=== PATIENT | male | born 1935 | race Caucasian/White ===

== ENCOUNTER 2016-08-03 14:13 | Emergency (ER) | payer OTHER ==
[~2016-08-03] VITALS: Ht 177.8 cm; Wt 86.9 kg
[~2016-08-03 14:13] MED LIST: ACT30 PO; ASPI81TA28 PO; ATOR-24 PO; BIMA0.01 OPR; CRD4 PO; DORZ2SOL17 OPR; GARL10007 PO; GLC/500 PO; GLC5 PO; GLIP10TA10 PO; GLIP10TA3 PO; HYDR50TA3 PO; LISI40TA PO; WARF4TAB PO; WARF6TAB PO
[2016-08-03 14:15] VITALS: TEMP 36.7; Ht 177.8 cm; Wt 86.9 kg
[2016-08-03 14:39] VITALS: O2SAT 98
[2016-08-03 14:56] LABS: BASO % 0.3 %; BASO ABS # 0.02 K/uL (0-0.2); COMPLETE YES; EOS % 3.2 %; HEMATOCRIT 37.8 % (42-52); LYMPH % 15.3 %; MEAN CELL VOLUME 92.6 fL (80-100); MEAN CORPUSCULAR HEMOGLOBIN 28.7 pg (25-34); MEAN PLATELET VOLUME 10.5 fL (7.4-10.4); MONO % 9.9 %; NEUT % 70.3 %; PLATELET COUNT 220 K/uL (130-400); RED BLOOD COUNT 4.08 M/uL (4.7-6.1); WHITE BLOOD COUNT 7.18 K/uL (4.8-10.8)
[2016-08-03 15:05] LABS: INR 1.3 (0.9-1.1); PROTHROMBIN TIME (PATIENT) 13.5 SECONDS (9.0-12.0)
[2016-08-03 15:31] LABS: ALB/GLOB RATIO 1.1 (0.9-2); CALCIUM 9.2 mg/dl (8.5-10.1); CREATININE 0.79 mg/dl (0.60-1.40); POTASSIUM 3.5 mmol/L (3.5-5.1)
--- NOTE | 2016-08-03 15:59 | DIAGNOSTIC IMAGING REPORT ---
CHEST ONE VIEW PORTABLE CLINICAL HISTORY: Congestive heart failure COMPARISON STUDY: No previous studies for comparison. FINDINGS: The heart is mildly enlarged. There is no evidence of failure. There is no focal pulmonary consolidation. There are minor basilar atelectatic changes. There is no pneumothorax. No pleural effusions are visualized.[ IMPRESSION: Mild cardiomegaly. No acute findings. Electronically signed by: Sergo Moreland M.D. 08/03/2016 3:57 PM Dictated Date/Time: 08/03/2016 3:56 PM
[2016-08-03 16:23] LABS: URINE APPEARANCE CLEAR (CLEAR); URINE BILIRUBIN NEG (NEG); URINE COLOR YELLOW; URINE NITRITE NEG (NEG); URINE SPECIFIC GRAVITY 1.019 (1.000-1.030); UROBILINOGEN NEG (NEG)
--- NOTE | 2016-08-03 16:25 | DIAGNOSTIC IMAGING REPORT ---
ULTRASOUND VENOUS DOPPLER LWR EXT BILA CLINICAL HISTORY: Bilateral leg swelling COMPARISON STUDY: No previous studies for comparison. FINDINGS: Real-time and color flow Doppler imaging were performed. Flow was seen within the femoral, popliteal and calf veins with no intraluminal thrombus demonstrated. The saphenous vein is patent. IMPRESSION: No evidence of lower extremity DVT. Electronically signed by: Sergo Moreland M.D. 08/03/2016 4:23 PM Dictated Date/Time: 08/03/2016 4:22 PM
[2016-08-03 16:27] LABS: MANUAL MICROSCOPIC REQUIRED? NO; REVIEW REQ? NO
[2016-08-03] MEDS ORDERED: WARFARIN SOD 5 MG TAB PO ONE (17:30)
[2016-08-03 17:31] VITALS: BP 160/78; PULSE 76; O2SAT 98
--- NOTE | 2016-08-03 20:06 | EMERGENCY ROOM VISIT NOTE ---
History Report prepared by Jason: Fidencio Bain Under the Supervision of: Dr. Roshan Ray D.O. First contact with patient: 14:19 Chief Complaint: EDEMA TO EXTREMITY Stated Complaint: REFERRED BY PAT , LEGS AND FEET SWOLLEN History of Present Illness The patient is a 80 year old male who presents to the Emergency Room with complaints of persistent bilateral lower extremity edema starting about 15 days ago. He currently denies any pain. He is unable to ambulate as normal due to the pain in his knees which he is having replaced and was at a preop appointment for prior to being sent over. He denies any history of similar symptoms. He denies any recent weight gain. He admits to losing weight. He was referred to the Emergency Room by his PCP. Pt denies headache, change in vision, fevers, chest pain, shortness of breath, nausea, vomiting, diarrhea, pain with urination, and melena. He denies any recent changes in medication. The patient is scheduled to have left knee replacement and will later have his right replaced. He is able to ambulate minimally due to pain in his knees but has no shortness of breath. He is able to lay flat without becoming short of breath. He denies any exertional chest pain. Source of History: patient Onset: about 15 days ago Position: other (bilateral lower extremities) Symptom Intensity: no pain Quality: other (edema) Timing: other (persistent) Associated Symptoms: No SOB, No chest pain, No diarrhea, No fevers, No headache, No nausea, No vomiting Review of Systems See HPI for pertinent positives & negatives. A total of 10 systems reviewed and were otherwise negative. Past Medical & Surgical Medical Problems: (1) Atrial flutter (2) Osteoarthritis Family History Patient reports no known family medical history. Social History Smoking Status: Former Smoker Marital Status: Occupation Status: retired Current/Historical Medications Scheduled Aspirin (Aspirin Ec), 81 MG PO QAM Atorvastatin (Lipitor), 40 MG PO QPM Bimatoprost (Lumigan), 1 DROP OPR HS Dorzolamide Hcl (Trusopt Oph), 1 DROP OPR QAM Doxazosin Mesylate (Doxazosin Mesylate), 4 MG PO QAM Garlic (Garlic), 1,000 MG PO QAM Glipizide (Glipizide), 5 MG PO QAM Glipizide (Glipizide), 10 MG PO QDB Hydrochlorothiazide (Hctz), 50 MG PO QAM Lisinopril (Zestril), 40 MG PO QAM Metformin Hcl (Glucophage), 1,000 MG PO BID Pioglitazone (Actos), 45 MG PO QPM Warfarin Sodium (Coumadin), 4 MG PO 3XWK Warfarin Sodium (Coumadin), 6 MG PO 4XWK Allergies Coded Allergies: No Known Allergies (Unverified , 08/03/16) Physical Exam Vital Signs Date Time Temp Pulse Resp B/P Pulse Ox O2 Delivery O2 Flow Rate FiO2 08/03/16 17:31 76 16 160/78 98 Room Air 08/03/16 16:38 76 16 170/73 97 Room Air 08/03/16 14:49 77 08/03/16 14:39 98 Room Air 08/03/16 14:15 36.7 73 18 163/78 98 Room Air Physical Exam GENERAL: Sitting up in bed, no distress, non-toxic EYE EXAM: normal conjunctiva OROPHARYNX: no exudate, no erythema, lips, buccal mucosa, and tongue normal and mucous membranes are moist NECK: supple, no nuchal rigidity, no adenopathy, non-tender. No JVD. LUNGS: Clear to auscultation. Normal chest wall mechanics HEART: no murmurs, S1 normal and S2 normal ABDOMEN: abdomen soft, non-tender, normo-active bowel sounds, no masses, no rebound or guarding. BACK: Back is symmetrical on inspection and there is no deformity, no midline tenderness, no CVA tenderness. SKIN: no rashes and no bruising UPPER EXTREMITIES: upper extremities are grossly normal. LOWER EXTREMITIES: Pitting edema tracking up to upper thighs, calves are equal bilaterally. NEURO EXAM: Normal sensorium, cranial nerves II-XII grossly intact, normal speech, no gross weakness of arms, no gross weakness of legs. Medical Decision & Procedures ER Provider Diagnostic Interpretation: Xray results as interpreted by me and the radiologist: CHEST ONE VIEW PORTABLE CLINICAL HISTORY: Congestive heart failure COMPARISON STUDY: No previous studies for comparison. FINDINGS: The heart is mildly enlarged. There is no evidence of failure. There is no focal pulmonary consolidation. There are minor basilar atelectatic changes. There is no pneumothorax. No pleural effusions are visualized.[ IMPRESSION: Mild cardiomegaly. No acute findings. Electronically signed by: Sergo Moreland M.D. 08/03/2016 3:57 PM Dictated Date/Time: 08/03/2016 3:56 PM US results as stated below per my review and the radiologist's interpretation: ULTRASOUND VENOUS DOPPLER LWR EXT BILA CLINICAL HISTORY: Bilateral leg swelling COMPARISON STUDY: No previous studies for comparison. FINDINGS: Real-time and color flow Doppler imaging were performed. Flow was seen within the femoral, popliteal and calf veins with no intraluminal thrombus demonstrated. The saphenous vein is patent. IMPRESSION: No evidence of lower extremity DVT. Electronically signed by: Sergo Moreland M.D. 08/03/2016 4:23 PM Dictated Date/Time: 08/03/2016 4:22 PM Laboratory Results 08/03/16 14:44 Red Blood Count 4.08, Mean Corpuscular Volume 92.6, Mean Corpuscular Hemoglobin 28.7, Mean Corpuscular Hemoglobin Concent 31.0, Mean Platelet Volume 10.5, Neutrophils (%) (Auto) 70.3, Lymphocytes (%) (Auto) 15.3, Monocytes (%) (Auto) 9.9, Eosinophils (%) (Auto) 3.2, Basophils (%) (Auto) 0.3, Neutrophils # (Auto) 5.05, Lymphocytes # (Auto) 1.10, Monocytes # (Auto) 0.71, Eosinophils # (Auto) 0.23, Basophils # (Auto) 0.02 08/03/16 14:44 Test 08/03/16 14:44 08/03/16 15:34 White Blood Count 7.18 K/uL (4.8-10.8) Red Blood Count 4.08 M/uL (4.7-6.1) Hemoglobin 11.7 g/dL (14.0-18.0) Hematocrit 37.8 % (42-52) Mean Corpuscular Volume 92.6 fL (80-100) Mean Corpuscular Hemoglobin 28.7 pg (25-34) Mean Corpuscular Hemoglobin Concent 31.0 g/dl (32-36) Platelet Count 220 K/uL (130-400) Mean Platelet Volume 10.5 fL (7.4-10.4) Neutrophils (%) (Auto) 70.3 % Lymphocytes (%) (Auto) 15.3 % Monocytes (%) (Auto) 9.9 % Eosinophils (%) (Auto) 3.2 % Basophils (%) (Auto) 0.3 % Neutrophils # (Auto) 5.05 K/uL (1.4-6.5) Lymphocytes # (Auto) 1.10 K/uL (1.2-3.4) Monocytes # (Auto) 0.71 K/uL (0.11-0.59) Eosinophils # (Auto) 0.23 K/uL (0-0.5) Basophils # (Auto) 0.02 K/uL (0-0.2) RDW Standard Deviation 56.4 fL (36.4-46.3) RDW Coefficient of Variation 16.5 % (11.5-14.5) Immature Granulocyte % (Auto) 1.0 % Immature Granulocyte # (Auto) 0.07 K/uL (0.00-0.02) Prothrombin Time 13.5 SECONDS (9.0-12.0) Prothromb Time International Ratio 1.3 (0.9-1.1) Anion Gap 9.0 mmol/L (3-11) Est Creatinine Clear Calc Drug Dose 77.0 ml/min Estimated GFR () 98.3 Estimated GFR (Non- 84.8 BUN/Creatinine Ratio 28.0 (10-20) Calcium Level 9.2 mg/dl (8.5-10.1) Total Bilirubin 1.7 mg/dl (0.2-1) Aspartate Amino Transf (AST/SGOT) 109 U/L (15-37) Alanine Aminotransferase (ALT/SGPT) 160 U/L (12-78) Alkaline Phosphatase 85 U/L (45-117) Pro-B-Type Natriuretic Peptide 1527 pg/ml (0-1800) Total Protein 6.2 gm/dl (6.4-8.2) Albumin 3.2 gm/dl (3.4-5.0) Globulin 3.0 gm/dl (2.5-4.0) Albumin/Globulin Ratio 1.1 (0.9-2) Urine Color YELLOW Urine Appearance CLEAR (CLEAR) Urine pH 5.0 (4.5-7.5) Urine Specific [place] 1.019 (1.000-1.030) Urine Protein NEG (NEG) Urine Glucose (UA) NEG (NEG) Urine Ketones TRACE (NEG) Urine Occult Blood NEG (NEG) Urine Nitrite NEG (NEG) Urine Bilirubin NEG (NEG) Urine Urobilinogen NEG (NEG) Urine Leukocyte Esterase NEG (NEG) Laboratory results per my review. Medications Administered Medications (Trade) Dose Ordered Sig/Iglesia Route Start Time Stop Time Status Last Admin Dose Admin Warfarin Sodium (Coumadin Tab) 10 mg NOW ONCE PO 08/03/16 17:30 08/03/16 17:31 DC 08/03/16 17:42 10 MG ECG Indication: other (Lower extremity edema) Rate (beats per minute): 66 Rhythm: atrial flutter Findings: other (normal axis; normal intervals) Comparison ECG Date: September 20, 2012 Change: no significant change ED Course ED COURSE: Vital signs were reviewed and showed hypertensive. The patients medical record was reviewed The above diagnostic studies were performed and reviewed. ED treatments and interventions as stated above. 1419: The patient was evaluated in room C11B. A complete history and physical examination was performed. 1544: I reevaluated the patient who is doing well. 1645: I updated the patient. 1658: I discussed the patient's case with his PCP, Dr. Henley, who will evaluate the patient this week. His INR will be followed up as well as the swelling. 1730: Coumadin Tab 10 mg PO. Upon reevaluation, the patient is resting comfortably.I discussed my findings with the patient and he understands and agrees with the treatment plan. Based on the patients age, coexisting illnesses, exam and lab findings the decision to treat as an outpatient was made. The patient remained stable while under my care. The patient appeared well at the time of discharge. Medical Decision Differential Diagnosis includes but is not limited to dehydration, stroke, anemia, hypoglycemia, hyponatremia, hypernatremia, urinary tract infection, pneumonia, bronchitis, sepsis, gastroenteritis, additional abdominal pathology, metabolic abnormalities and infections. Old labs show persistent elevation AST ALT 120 and TBIL of 2.1. Patient is an 80-year-old male who presents the ER referred in from the preoperative nurse for swelling in the bilateral lower extremities. She notes that this has been present for the past 15 days. He has been much less active due to his knee pain. He is currently scheduled to have his knee replaced. He is able to lay flat without shortness of breath. He has no exertional shortness of breath or chest pain. EKG is unchanged from previous. LFTs were slightly elevated but unchanged from his previous. CBC is unremarkable. BMP is unremarkable as well. BNP was not markedly elevated at 1500. Troponin was not drawn since he was having no chest pain or shortness of breath. EKG as stated above is unchanged. Chest x-ray shows no congestive failure. There was no JVD. Discussed with findings with his PCP who will follow his INR up as it is subtherapeutic. He was given an extra dose in the ER and instructed to increase his Coumadin for 2 days as stated on his discharge instructions. His PCP will also follow-up lower extremity pitting edema. Stressed the importance of elevation in his lower extremities. Discussed with Pt concerning signs and symptoms to watch out for. Pt was instructed to follow up with their PCP and discussed with the patient their option to return to the ED at anytime for persistent or worsening symptoms. The appropriate anticipatory guidance and out- patient management, including indications for return to the emergency department , were explained at length to the patient and understood. Consults Time Called: [id number] Consulting Physician: Dr. Henley, PCP Returned Call: [phone] I discussed the patient's case with his PCP, Dr. Henley, who will evaluate the patient this week. His INR will be followed up as well as the swelling. Impression Primary Impression: Swelling of both lower extremities Additional Impression: Subtherapeutic anticoagulation Scribe Attestation The scribe's documentation has been prepared under my direction and personally reviewed by me in its entirety. I confirm that the note above accurately reflects all work, treatment, procedures, and medical decision making performed by me. Departure Information Dispostion Home / Self-Care Referrals Cale Lee PA-C (PCP) Forms HOME CARE DOCUMENTATION FORM, IMPORTANT VISIT INFORMATION, WORK / SCHOOL INSTRUCTIONS Patient Instructions ED Edema Leg Unilateral, My [facility] Additional Instructions Please follow up with your primary care doctor with in the next 24 hours. Any worsening of your symptoms, please return to the ED immediately. This includes shortness of breath, passing out, trouble breathing or any other concerning signs or symptoms from your standpoint. Please follow up with your primary care doctor in regards to the bilateral lower extremity edema. Please increase her Coumadin dosing to 6 mg tomorrow and 6 mg on Wednesday. You need to call your primary care doctor tomorrow morning to schedule appointment as soon as possible. Please keep your legs as elevated as possible as frequently as possible Problem Qualifiers
[2016-09-06] MEDS ORDERED: RXC5 PO (09:14)
== END 2016-08-03 18:17 | disposition home or self-care (01) ==
LOC: C.EDB 14:15 → C.EDC 18:17
DX: M79.89 Other specified soft tissue disorders (principal); R79.1 Abnormal coagulation profile; I48.92 Unspecified atrial flutter; M19.90 Unspecified osteoarthritis, unspecified site; Z87.891 Personal history of nicotine dependence; Z79.82 Long term (current) use of aspirin; Z79.01 Long term (current) use of anticoagulants; Z79.899 Other long term (current) drug therapy

== ENCOUNTER 2016-09-04 04:51 | Inpatient (IN) | payer OTHER ==
[2016-08-03 12:53] VITALS: BMI 27.0
--- NOTE | 2016-08-03 13:59 | PAT Medication Instructions ---
Service Date Aug 03, 2016. Current Home Medication List Aspirin (Aspirin Ec), 81 MG PO QAM Atorvastatin (Lipitor), 40 MG PO QPM Bimatoprost (Lumigan), Unknown Dose OPR HS Dorzolamide Hcl (Trusopt Oph), Unknown Dose OPR QAM Doxazosin Mesylate (Doxazosin Mesylate), 1 TAB PO QAM Garlic (Garlic), 1 TAB PO QAM Glipizide (Glipizide), 1 TAB PO QAM Glipizide (Glipizide), 1 TAB PO QAM Hydrochlorothiazide (Hctz), 50 MG PO QAM Lisinopril (Zestril), 40 MG PO QAM Metformin Hcl (Glucophage), 2 MG PO BID Metformin Hcl (Glucophage), 2 TAB PO BID Pioglitazone (Actos), 45 MG PO QPM Warfarin Sodium (Coumadin), 4 MG PO 3XWK Warfarin Sodium (Coumadin), 6 MG PO 4XWK Medication Instructions For Your Scheduled Surgery - Hold the following medications per prescribing physician's instructions: Warfarin Sodium (Coumadin), 4 MG PO 3XWK Warfarin Sodium (Coumadin), 6 MG PO 4XWK - Hold the following medications 2 weeks prior to surgery: Garlic (Garlic), 1 TAB PO QAM - Hold the following medications 48 hours prior to surgery: Metformin Hcl (Glucophage), 2 TAB PO BID - Hold the following medications the morning of surgery: Hydrochlorothiazide (Hctz), 50 MG PO QAM Lisinopril (Zestril), 40 MG PO QAM Glipizide (Glipizide), 1 TAB PO QAM Glipizide (Glipizide), 1 TAB PO QAM - Take the following medications the morning of surgery with a sip of water OTHERWISE NOTHING TO EAT OR DRINK AFTER MIDNIGHT: Aspirin (Aspirin Ec), 81 MG PO QAM Dorzolamide Hcl (Trusopt Oph), Unknown Dose OPR QAM Doxazosin Mesylate (Doxazosin Mesylate), 1 TAB PO QAM - Take the following medications as scheduled the night before surgery: Atorvastatin (Lipitor), 40 MG PO QPM Bimatoprost (Lumigan), Unknown Dose OPR HS Pioglitazone (Actos), 45 MG PO QPM If you have any questions please call us at [phone] or [phone] or [phone]
--- NOTE | 2016-08-03 14:27 | Anesthesiology Progress Note ---
Anesthesia Progress Note Date of Service Aug 03, 2016. Progress Notes Pt seen in PAT today in preparation for L TKA with Dr. Sawant 09/04/16. PMH significant for NIDDM, Afib/Aflutter; pt on Coumadin. Follows with [facility]. Last seen 2014. Pt states over the past few weeks he has had progressive weakness B/L LE, and has essentially been WC bound. States he has noticed increased swelling in B/L LE from knees to feet; so much so that he has had to buy special socks and can barely get his shoes on. Pt also with an erythematous area over dorsal surface of foot. Vitals WNL. Pt sent to ED for evaluation to R/O CHF, DVT, cellulitis. Called triage nurse to let them know that pt was on their way.
--- NOTE | 2016-09-03 11:54 | HISTORY & PHYSICAL EXAMINATION ---
DATE OF ADMISSION: 09/04/2016 CHIEF COMPLAINT: Primary osteoarthritis, left knee. HISTORY OF PRESENT ILLNESS: Laine is a pleasant 80-year-old male who has been dealing with chronic left knee pain. X-rays and clinical examination were diagnostic for primary osteoarthritis of the left knee. After failing years of conservative treatment, he has elected to proceed with a left total knee arthroplasty. PAST MEDICAL HISTORY: Significant for non-insulin diabetes, glaucoma, atrial flutter, hyperlipidemia and hypertension. MEDICATIONS: Include: 1. Lipitor 40 mg daily. 2. Coumadin 4 mg every Wednesday, Wednesday and Wednesday and 6 mg every other day. 3. Zestril 40 mg daily. 4. HydroDIURIL or hydrochlorothiazide 50 mg daily. 5. Glucophage 500 mg two tabs twice a day. 6. Glucotrol 5 mg daily. 7. Glucotrol 10 mg daily. 8. Actos 45 mg daily. 9. Cardura 4 mg daily. 10. Aspirin 81 mg daily. ALLERGIES: None. FAMILY HISTORY: Noncontributory. SOCIAL HISTORY: He is a former smoker and he currently chews tobacco. He denies any alcohol use. REVIEW OF SYSTEMS: He complains of left knee pain. All other pertinent review of systems are negative. PHYSICAL EXAMINATION: GENERAL: He is awake, alert and oriented x3. He is in no apparent distress. He is very pleasant. HEAD, EYES, EARS, NOSE, AND THROAT: Pupils are equal, round and reactive to light. Extraocular movements intact. Oral mucosa is pink and moist. HEART: Regular rate per radial pulse. LUNGS: Airam symmetrically bilaterally with no audible breath sounds. ABDOMEN: Soft, nontender, nondistended. MUSCULOSKELETAL: On physical examination of the knee he ambulates via wheelchair mostly because of his knee pain. He has a very slight varus deformity. He has good range of motion from 0-120 degrees. All of his pain is located over the distal medial femoral condyle. There is no effusion. X-rays of the left knee do show advanced osteoarthritis mostly involving the medial compartment with slight varus deformity to the knee. IMPRESSION: Primary osteoarthritis of the left knee. PLAN: Will proceed with a [employer]omet Vanguard left total knee arthroplasty. Postoperatively, he will be kept in the hospital for 2 midnights for postoperative medical management and pain control.
[~2016-09-04] VITALS: Ht 177.8 cm; Wt 97.0 kg
[~2016-09-04 04:51] MED LIST changes: -GLIP10TA3 PO
[2016-09-04 05:50] VITALS: BP 162/71; PULSE 59; TEMP 36.9; O2SAT 96; Ht 177.8 cm; Wt 97.0 kg
[2016-09-04] MEDS ORDERED: CEFAZOLIN 2000 MG/60 ML D5W 60 ML IV SCH (06:00)
[2016-09-04] MEDS ORDERED: ROPIVACAINE 5MG/ML 30 ML 150 MG, BUPIVACAINE/EPINEPHR 0.5% MPF 30 ML, KETOROLAC TROMETH... INFIL SCH ×7 (06:00)
[2016-09-04] MEDS ORDERED: ACETAMINOPHEN 500 MG TAB PO SCH (06:00)
[2016-09-04] MEDS ORDERED: GABAPENTIN 300 MG CAP PO SCH (06:00)
[2016-09-04] MEDS ORDERED: FAMOTIDINE 20 MG TAB PO SCH (06:00)
[2016-09-04] MEDS ORDERED: LACTATED RINGER'S 1000ML IV SCH (06:00)
[2016-09-04] MEDS ORDERED: LACTATED RINGER'S 1000ML 1,000 ML IV SCH (06:00)
--- NOTE | 2016-09-04 06:28 | History & Physical Bridge Note ---
H&P Re-Evaluation Bridge Note: I have examined the patient, reviewed the History & Physical and in the interval since the performance of the History & Physical I have noted the following changes of clinical significance: No changes noted
[2016-09-04] MEDS ORDERED: BUPIVACAINE 0.5 % 5 MG/1 ML PF 10ML VIAL ONE (06:33)
[2016-09-04] MEDS ORDERED: MIDAZOLAM HCL 1 MG/ML 2ML VIAL ONE (06:36)
[2016-09-04] MEDS ORDERED: ONDANSETRON INJ 2 MG/ML 2 ML VIAL ONE (06:36)
[2016-09-04] MEDS ORDERED: PROPOFOL IV EMULSION 10 MG/ML 20 ML VIAL IV ONE (06:36)
[2016-09-04] MEDS ORDERED: FENTANYL CITRATE INJ 50 MCG/1 ML 2 ML VIAL ONE ×2 (06:36→07:51)
[2016-09-04] MEDS ORDERED: ORTHO JOINT ANESTHETIC ONE (06:37)
[2016-09-04] MEDS ORDERED: BACITRACIN 50000 UNIT VIAL ONE (06:38)
[2016-09-04 06:44] LABS: INR 1.3 (0.9-1.1); PARTIAL THROMBOPLASTIN RATIO 1.1; PROTHROMBIN TIME (PATIENT) 13.6 SECONDS (9.0-12.0)
[2016-09-04] MEDS ORDERED: [UNRECOGNIZED DRUG - REMARK] PO (06:58)
[2016-09-04] MEDS ORDERED: NEOSTIGMINE METHYLSULFATE 5 MG/5 ML SYR ONE (08:08)
[2016-09-04] MEDS ORDERED: LIDOCAINE HCL 2% 2 ML VIAL (20MG/ML) ONE (08:08)
[2016-09-04] MEDS ORDERED: ROCURONIUM BROMIDE 10 MG/ML 5 ML VIAL ONE (08:08)
[2016-09-04] MEDS ORDERED: GLYCOPYRROLATE INJ 0.2 MG/ML VIAL ONE (08:08)
--- NOTE | 2016-09-04 08:53 | [facility] Post Operative Brief Note ---
Immediate Operative Summary Operative Date September 04, 2016. Pre-Operative Diagnosis Primary osteoarthritis, left knee Post-Operative Diagnosis Same Procedure(s) Performed Left Total Knee Arthroplasty Cemented Surgeon Dr Sawant Reliability Engineer Surgeon(s) Jeremy Higgins PA-C Estimated Blood Loss 10ML Findings as above Specimens A. left knee bone and tissue Complication(s) None Disposition Recovery Room / PACU
[2016-09-04] MEDS ORDERED: ONDANSETRON INJ 2 MG/ML 2 ML VIAL IV PRN ×2 (09:00→09:15)
[2016-09-04] MEDS ORDERED: MAGNESIUM HYDROXIDE SUSP 30 ML UDC PO PRN (09:00)
[2016-09-04] MEDS ORDERED: GLUCAGON FOR INJ 1 MG VIAL SQ PRN (09:00)
[2016-09-04] MEDS ORDERED: GLUCOSE 40% GEL 15 GM TUBE PO PRN (09:00)
[2016-09-04] MEDS ORDERED: MoRPHine SULFATE 2 MG/ML CARP IV PRN (09:00)
[2016-09-04] MEDS ORDERED: METOCLOPRAMIDE HCL INJ 5 MG/ML 2 ML VIAL IV PRN (09:00)
[2016-09-04] MEDS ORDERED: OXYCODONE HCL IR 5 MG TAB (IMMEDIATE RELEASE) PO PRN (09:00)
[2016-09-04] MEDS ORDERED: SILVER SULFADIAZINE 1% CR 50 GM JAR EXT PRN (09:00)
[2016-09-04] MEDS ORDERED: BISACODYL 10 MG SUPP PR PRN (09:00)
[2016-09-04] MEDS ORDERED: SOD PHOSPHATE/SOD BIPHOSPHATE ENEMA 132 ML BTL PR PRN (09:00)
[2016-09-04] MEDS ORDERED: DEXTROSE 50% 50 ML SYR IV PRN (09:00)
[2016-09-04] MEDS ORDERED: GLUCOSE 10 TABS/TUBE PO PRN (09:00)
[2016-09-04] MEDS ORDERED: PHARMACY GLYCEMIC MGMT CONSULT PRN (09:09)
[2016-09-04] MEDS ORDERED: ATROPINE SULFATE 0.1 MG/ML 5ML SYR IV PRN (09:15)
[2016-09-04] MEDS ORDERED: FENTANYL CITRATE INJ 50 MCG/1 ML 2 ML VIAL IV PRN (09:15)
[2016-09-04] MEDS ORDERED: HYDROmorphone INJ 1 MG/ML SYR IV PRN (09:15)
[2016-09-04] MEDS ORDERED: EpHEDrine SULFATE INJ 50 MG/ML AMP IV PRN (09:15)
[2016-09-04] MEDS ORDERED: EpHEDrine SULFATE 50MG/5ML SYR ONE (09:37)
--- NOTE | 2016-09-04 09:45 | Pharmacy Progress Note ---
Glycemic Control Intl Consult Date of Service September 04, 2016. Scope Glycemic Pharmacist consulted for glycemic control and to write orders per [facility] inpatient glycemic control protocol Objective Weight (Kilograms): 85.10 Accuchecks BSG (last 24hrs): Test 09/04/16 05:35 Bedside Glucose 166 mg/dl (70-99) Recent Pertinent Medications Outpatient Anti-diabetic Regimen: * Metformin 1 g po BID * Glipizide po qAM * Actos 45 mg po qPM * A1c unknown, ordered for 09/05/16 Risk Factors for Insulin Resistance: * Steroids: Dexamethasone 4 mg (in ortho joint) * Recent Surgery: POD 0 s/p TKA * Diet: T2DM Assessment & Plan ASSESSMENT: * Pt is maintained on *three* oral antidiabetic agents as an outpatient with unknown degree of outpatient control * Oral agents are not recommended for inpatient use d/t drug interactions, changing PO intake, and difficulty titrating for acute hyper/hypoglycemia. ADA recommends re-initiating outpatient oral agents 1-2 days prior to discharge if/ when appropriate if they were held on admission. * Unknown HbA1c. Will order for tomorrow to assess degree of outpatient control * Will hold oral agents for admission and utilize SQ basal bolus insulin regimen which is the recommended regimen for inpatient glycemic control. * Will initiate weight based insulin dosing for insulin dora patient and titrate based on BSG trends. * Lantus 0.2 units/kg x1 now then weight-based w low stress additional this PM for hyperglycemia * Overnight check x1 * ADA & AACE recommend a goal blood sugar range 140-180 mg/dl for the majority of critically ill & non-critically ill patients. However, more stringent targets may be selected in individual cases. Will utilize more stringent goal of 110-140 mg/dl. Additionally, tighter glycemic control is warranted to facilitate wound/infection healing. PLAN FOR INPATIENT GLYCEMIC CONTROL: * Holding outpatient oral diabetes medications * Basal insulin with LANTUS 18 units SQ x1 now. Additional 8 units tonight if BSG > 150 mg/dL * Correctional Insulin with NOVOLOG per scale ACHS or Q6hrs while NPO - additional check at 0200 * Goal Range: Low 110 mg/dL - High 140 mg/dL * Correction Factor: 30 mg/dL/unit * Nutritional / Prandial insulin per carb ratio of 1 unit per 9 grams CHO consumed * Please note that the plan above was derived based on current level of insulin resistance and hospital stress. These recommendations are appropriate for inpatient admission only. Plan of care upon discharge will need to be reassessed to avoid potential outpatient hypo/hyperglycemia. Thank you.
--- NOTE | 2016-09-04 10:05 | DIAGNOSTIC IMAGING REPORT ---
TWO VIEWS LEFT KNEE CLINICAL HISTORY: Postoperative examination. FINDINGS: AP and crosstable lateral portable views of the left knee are obtained. A left knee arthroplasty is in near anatomic alignment. There has been undersurface remodeling of the patella. No acute fracture is seen. There are expected postoperative changes around the knee including skin clips, a surgical drain, soft tissue edema, and subcutaneous gas. A calcified fabella is incidentally noted. There is advanced atherosclerotic calcification of the regional arteries. IMPRESSION: Expected postoperative changes status post left knee arthroplasty. No acute fracture is seen. Electronically signed by: Cam Quinn M.D. 09/04/2016 10:03 AM Dictated Date/Time: 09/04/2016 10:03 AM
[2016-09-04 10:40] VITALS: BP 149/74; PULSE 65; TEMP 36.5; O2SAT 99
--- NOTE | 2016-09-04 10:58 | Anesthesiology Progress Note ---
Anesthesia Post Op Note Date & Time September 04, 2016 at 10:58 Vital Signs Pain Intensity: 0 Vital Signs Past 12 Hours Date Time Temp Pulse Resp B/P Pulse Ox O2 Delivery O2 Flow Rate FiO2 09/04/16 10:15 36.3 64 14 140/69 100 Nasal Cannula 2 09/04/16 10:05 63 12 138/66 100 Nasal Cannula 2 09/04/16 09:55 60 14 142/65 100 Nasal Cannula 2 09/04/16 09:45 55 10 125/64 100 Mask 10 09/04/16 09:35 61 17 135/71 100 Mask 10 09/04/16 09:29 36.2 55 12 140/61 100 Mask 10 09/04/16 05:50 36.9 59 20 162/71 96 Room Air Notes Mental Status: alert / awake / arousable, participated in evaluation Pt Amnestic to Procedure: Yes Nausea / Vomiting: adequately controlled Pain: adequately controlled Airway Patency, RR, SpO2: stable & adequate BP & HR: stable & adequate Hydration State: stable & adequate Anesthetic Complications: no major complications apparent
[2016-09-04] MEDS ORDERED: INSULIN GLARGINE SOLOSTAR 100 UNITS/ML 3 ML PEN SC STA (11:04)
[2016-09-04 11:30] VITALS: BP 153/73; PULSE 64; TEMP 36.6; O2SAT 100
[2016-09-04] MEDS: DOCUSATE SODIUM 100 MG CAP PO SCH ×2 (12:59→21:14)
[2016-09-04] MEDS: INSULIN ASPART 100 UNITS/ML 3 ML PEN SC SCH ×3 (12:59→21:17)
[2016-09-04] MEDS: DOXAZosin MESYLATE TAB 4 MG TAB PO SCH (12:59)
[2016-09-04] MEDS: PANTOprazole SOD 40 MG TAB PO SCH (12:59)
[2016-09-04] MEDS: LISINOPRIL 40 MG TAB PO SCH (12:59)
[2016-09-04] MEDS: MULTIVITAMIN TAB PO SCH (12:59)
[2016-09-04] MEDS: KETOROLAC TROMETHAMINE 15 MG/ML VIAL IV. SCH ×2 (13:02→17:21)
[2016-09-04] MEDS: SODIUM CHLORIDE 0.9% 1000ML 1,000 ML IV SCH ×2 (13:03→21:18)
[2016-09-04] MEDS: DORZOLAMIDE HCL 2% OPH SOLN 10 ML BTL OPR SCH (13:03)
[2016-09-04 15:37] VITALS: BP 134/66; PULSE 47; TEMP 36.5; O2SAT 100
[2016-09-04] MEDS ORDERED: WARFARIN SOD 2.5 MG TAB PO SCH (16:00)
--- NOTE | 2016-09-04 16:14 | OPERATIVE REPORT ---
DATE OF OPERATION: 09/04/2016 PREOPERATIVE DIAGNOSIS: Primary osteoarthritis of the left knee. POSTOPERATIVE DIAGNOSIS: Same. PROCEDURE: Left total knee arthroplasty. SURGEON: Dr. Abrahan Sawant. TERMITE EXTERMINATOR HELPER: Jeremy Higgins PA-C, whose assistance was necessary for positioning the arm and helping with instrumentation. ANESTHESIA: General with a left interscalene nerve block. COMPLICATIONS: None. CONDITION: Stable to PACU. IMPLANTS USED: I used a [employer] Vanguard left total knee arthroplasty with a size 70 femur, size 79 tibia, size 14 posterior stabilized polyethylene bearing and a size 31 x 8 mm patella. Palacos G cement was used on all components. INDICATIONS: Laine is a pleasant 80-year-old man who presented to my office with complaints of chronic left knee pain. X-rays and clinical examination were diagnostic for primary osteoarthritis of the left knee. After failing extensive conservative treatment, he elected to undergo a left total knee arthroplasty. OPERATION AND FINDINGS: On 09/04/2014, he arrived at [facility] for the above procedure. He was seen in the preoperative holding area and the operative extremity was identified and signed. He was given a preoperative antibiotic and a left femoral nerve block. He was then taken back to the operating room, laid on the table in supine position and put under general anesthesia. The left knee was then prepped and draped in sterile fashion. Time-out was done and the patient and operative extremity was properly identified. A midline incision was made directly over the patella. Dissection was taken down through the fascia and extensor mechanism was exposed. A medial parapatellar arthrotomy was used. The fat pad was excised, medial retinaculum was released and the knee was flexed. A drill was sent down the center of the femoral canal. An intramedullary ruddy was then sent down the canal. Off the ruddy a distal femoral cutting block was placed and 12 mm was resected off the distal femur at 5 degrees of valgus. A posterior referencing guide was then used and the femur measured to be a size 70. Two drill holes were then placed in 3 degrees of external rotation and a formal cutting block was impacted into place. Anterior, posterior and chamfer cuts were then made. A box cutting guide was then placed and the box was resected for the posterior stabilizing component. The proximal tibia was then exposed. A drill was sent down the center of the tibial canal followed by an intramedullary ruddy. Off the ruddy, a proximal tibial resection guide was placed and 2 mm was taken off the low tibial side. Time was spent then removing any remnants of meniscus and cruciate ligaments soft tissue from the posterior aspect of the knee. The tibia was then measured to be a size 79. It was set in the appropriate rotation, drilled and then punched. Trial complements were placed, the knee was brought through a full range of motion and felt to be stable. The patella was then everted and 8 mm was resected off the posterior aspect of the patella. A 31 mm patella seemed to be the best fit and 3 drill holes were placed. Complements were then removed, the knee was then irrigated and surrounding soft tissues were injected with 100 mL of an orthopedic pain control cocktail. The femoral, tibial, and patellar components were then cemented in place with Palacos-G cement. Once cement had hardened, several different polyethylene inserts were trialed and a size 14 seemed to be the best fit. The final 14 insert was snapped into place and the anterior bar was locked. The knee was then irrigated, 2 drains were placed. The extensor mechanism was closed with #2 FiberWire sutures and the superior medial aspect of the knee and Vicryl sutures both proximally and distally. The skin was then closed with 2-0 Vicryl and 3-0 V-Loc suture and patrick. He was placed in a soft compressive dressing, extubated, transferred to a litter and taken to the postanesthesia care unit in stable condition. He tolerated the procedure well. I attest to the content of the Intraoperative Record and any orders documented therein. Any exceptio ns are noted below.
[2016-09-04] MEDS: CEFAZOLIN IV 2,000 MG in DEXTROSE 5% 50ML 50 ML IV SCH (16:50)
[2016-09-04 19:18] VITALS: BP 107/63; PULSE 69; TEMP 36.8; O2SAT 98
[2016-09-04] MEDS ORDERED: INSULIN GLARGINE SOLOSTAR 100 UNITS/ML 3 ML PEN SC ONE (21:00)
[2016-09-04] MEDS: SENNA 8.6 MG TAB PO SCH (21:14)
[2016-09-04] MEDS: BIMATOPROST 0.01% OP SOLN 2.5 ML BTL OPR SCH (21:14)
[2016-09-04] MEDS: ATORVASTATIN 40 MG TAB PO SCH (21:14)
[2016-09-04 23:02] VITALS: BP 98/54; PULSE 63; TEMP 36.6; O2SAT 100
[2016-09-05] VITALS (9 sets, daily range): BP systolic 96–126; BP diastolic 50–70; PULSE 57–81; TEMP 36.4–36.7; O2SAT 97–100
[2016-09-05] MEDS: CEFAZOLIN IV 2,000 MG in DEXTROSE 5% 50ML 50 ML IV SCH (00:22)
[2016-09-05] MEDS: KETOROLAC TROMETHAMINE 15 MG/ML VIAL IV. SCH ×5 (00:22→23:48)
[2016-09-05] MEDS ORDERED: INSULIN ASPART 100 UNITS/ML 3 ML PEN SC ONE (02:00)
[2016-09-05] MEDS: SODIUM CHLORIDE 0.9% 1000ML 1,000 ML IV SCH (04:53)
[2016-09-05 07:23] LABS: HEMATOCRIT 30.7 % (42-52); MEAN CELL VOLUME 93.9 fL (80-100); MEAN CORPUSCULAR HEMOGLOBIN 28.7 pg (25-34); MEAN CORPUSCULAR HGB CONC 30.6 g/dl (32-36); MEAN PLATELET VOLUME 10.6 fL (7.4-10.4); PLATELET COUNT 181 K/uL (130-400); RED BLOOD COUNT 3.27 M/uL (4.7-6.1); WHITE BLOOD COUNT 10.67 K/uL (4.8-10.8)
[2016-09-05 07:30] LABS: INR 1.2 (0.9-1.1); PROTHROMBIN TIME (PATIENT) 13.4 SECONDS (9.0-12.0)
[2016-09-05 07:38] LABS: ESTIMATED AVERAGE GLUCOSE 134 mg/dl; HA1C FLAG Normal (Normal)
[2016-09-05] MEDS: DORZOLAMIDE HCL 2% OPH SOLN 10 ML BTL OPR SCH (07:50)
[2016-09-05] MEDS: ENOXAPARIN 40 MG/0.4 ML SYR SQ SCH (07:51)
[2016-09-05 07:52] LABS: BUN/CREATININE RATIO 26.3 (10-20); CALCIUM 7.9 mg/dl (8.5-10.1); CREATININE 0.75 mg/dl (0.60-1.40); POTASSIUM 4.8 mmol/L (3.5-5.1)
[2016-09-05] MEDS: DOXAZosin MESYLATE TAB 4 MG TAB PO SCH (07:52)
[2016-09-05] MEDS: DOCUSATE SODIUM 100 MG CAP PO SCH ×2 (07:52→21:07)
[2016-09-05] MEDS: MULTIVITAMIN TAB PO SCH (07:52)
[2016-09-05] MEDS: LISINOPRIL 40 MG TAB PO SCH (07:52)
[2016-09-05] MEDS: PANTOprazole SOD 40 MG TAB PO SCH (07:58)
[2016-09-05] MEDS: INSULIN ASPART 100 UNITS/ML 3 ML PEN SC SCH ×4 (08:00→21:00)
--- NOTE | 2016-09-05 09:23 | PROGRESS NOTE ---
DATE: 09/05/2016 DATE: 09/05/2016. CHIEF COMPLAINT: Status post left total knee arthroplasty postop day #1. PROGRESS: Laine was seen and examined at bedside today. Overall, he is doing fairly well. He has not been up yet with physical therapy. His pain is controlled. He was able to get some sleep last night and has no complaints. PHYSICAL EXAMINATION: LEFT KNEE: The dressing is clean and dry. His knee is in full extension. He has active dorsiflexion and plantarflexion of his left ankle. Sensation is intact. LABORATORY DATA: He has an H\T\H today of 9.4 and 30.7. His glucose is 126 with an A1c of 6.3. His vital signs are all stable on 2 liters of nasal cannula. He is voiding on his own. He has not had a bowel movement yet. X-rays postoperatively of the left knee showed the prosthesis to be anatomic alignment without any evidence of fracture, dislocation or loosening. IMPRESSION: Status post left total knee arthroplasty postop day #1. PLAN: At this point, he is doing fairly well. I encouraged him to get up and ambulate today with physical therapy. Tomorrow the nursing staff will change the dressing and pull the drain and will look to discharge him to home with [facility].
--- NOTE | 2016-09-05 09:31 | Pharmacy Progress Note ---
Glycemic Control: Progress Nt Date of Service September 05, 2016. Scope Glycemic Pharmacist consulted by Dr Sawant on 09/04 for glycemic control and to write orders per [facility] inpatient glycemic control protocol. Objective Accuchecks BSG (last 24hrs): Test 09/04/16 09:53 09/04/16 12:39 09/04/16 16:23 09/04/16 20:53 Bedside Glucose 149 mg/dl (70-99) 142 mg/dl (70-99) 161 mg/dl (70-99) 149 mg/dl (70-99) Test 09/05/16 02:57 09/05/16 06:34 09/05/16 07:00 Bedside Glucose 128 mg/dl (70-99) 117 mg/dl (70-99) Random Glucose 126 mg/dl (70-99) Laboratory Data (last 24hrs) Test 09/05/16 07:00 Anion Gap 5.0 mmol/L BUN/Creatinine Ratio 26.3 Blood Urea Nitrogen 20 mg/dl Creatinine 0.75 mg/dl Hemoglobin A1c 6.3 % Potassium Level 4.8 mmol/L Sodium Level 144 mmol/L White Blood Count 10.67 K/uL HbA1c: Test 09/05/16 07:00 Hemoglobin A1c 6.3 % (4.5-5.6) H Recent Pertinent Medications Outpatient Anti-diabetic Regimen: * Metformin 1 g po BID * Glipizide po qAM * Actos 45 mg po qPM The patient is currently receiving: * Basal insulin: Lantus 18 units x 1 yesterday * Correctional Insulin: Novolog Correction per scale ACHS Goal Range: Low 110 mg/dL - High 140 mg/dL Correction Factor: 30 mg/dL/unit * Prandial insulin: Per carb ratio of 1 unit per 9 grams CHO consumed * Oral Agents: None at this time Risk Factors for Insulin Resistance: * Steroids: Decadron in the ortho joint inj that he rec'd yesterday * Recent Surgery: POD 1 s/p TKA * Diet: type 2 diabetes Assessment & Plan ASSESSMENT: 09/04/16 * Pt is maintained on *three* oral antidiabetic agents as an outpatient with unknown degree of outpatient control * Oral agents are not recommended for inpatient use d/t drug interactions, changing PO intake, and difficulty titrating for acute hyper/hypoglycemia. ADA recommends re-initiating outpatient oral agents 1-2 days prior to discharge if/ when appropriate if they were held on admission. * Unknown HbA1c. Will order for tomorrow to assess degree of outpatient control * Will hold oral agents for admission and utilize SQ basal bolus insulin regimen which is the recommended regimen for inpatient glycemic control. * Will initiate weight based insulin dosing for insulin dora patient and titrate based on BSG trends. * Lantus 0.2 units/kg x1 now then weight-based w low stress additional this PM for hyperglycemia * Overnight check x1 * ADA & AACE recommend a goal blood sugar range 140-180 mg/dl for the majority of critically ill & non-critically ill patients. However, more stringent targets may be selected in individual cases. Will utilize more stringent goal of 110-140 mg/dl. Additionally, tighter glycemic control is warranted to facilitate wound/infection healing. 09/05/16 * Patient rec'd 24 units of insulin yesterday w/ BSGs ranging from 117-161 in the past 24 hours * BSG remains w/in range prior to lunch, indicating that TDD of ~30 units adequately controls the patient's blood sugars * Will plan to give an additional dose of Lantus today since the last dose was ~ 24 hours ago * Will also loosen both the CF and CR to be more consistent w/ a TDD of 30 units PLAN FOR INPATIENT GLYCEMIC CONTROL: * Lantus 15 units x 1 now, will reassess tomorrow and give another dose if patient not being discharged * Change correction factor to 50 mg/dl/unit * Change carb ratio to 1 unit per 15 grams CHO consumed * Continue goal range of Low 110 mg/dL - High 140 mg/dL * Please note that the plan above was derived based on current level of insulin resistance and hospital stress. These recommendations are appropriate for inpatient admission only. Plan of care upon discharge will need to be reassessed to avoid potential outpatient hypo/hyperglycemia. Thank you.
[2016-09-05] MEDS ORDERED: INSULIN GLARGINE SOLOSTAR 100 UNITS/ML 3 ML PEN SC ONE (12:45)
[2016-09-05] MEDS ORDERED: WARFARIN SOD 5 MG TAB PO ONE (16:00)
[2016-09-05] MEDS: ATORVASTATIN 40 MG TAB PO SCH (21:07)
[2016-09-05] MEDS: SENNA 8.6 MG TAB PO SCH (21:07)
[2016-09-05] MEDS: BIMATOPROST 0.01% OP SOLN 2.5 ML BTL OPR SCH (21:09)
[2016-09-06] VITALS (9 sets, daily range): BP systolic 105–150; BP diastolic 62–70; PULSE 56–86; TEMP 36.5–36.9; O2SAT 94–99
[2016-09-06] MEDS: KETOROLAC TROMETHAMINE 15 MG/ML VIAL IV. SCH (05:58)
[2016-09-06] MEDS ORDERED: NURSING VERBAL MED ORDER ONE (07:15)
[2016-09-06] MEDS: DORZOLAMIDE HCL 2% OPH SOLN 10 ML BTL OPR SCH (07:21)
[2016-09-06] MEDS: ENOXAPARIN 40 MG/0.4 ML SYR SQ SCH (07:22)
[2016-09-06] MEDS: DOCUSATE SODIUM 100 MG CAP PO SCH ×2 (07:22→19:54)
[2016-09-06] MEDS: DOXAZosin MESYLATE TAB 4 MG TAB PO SCH (07:22)
[2016-09-06] MEDS: LISINOPRIL 40 MG TAB PO SCH (07:22)
[2016-09-06] MEDS: MULTIVITAMIN TAB PO SCH (07:22)
[2016-09-06] MEDS: PANTOprazole SOD 40 MG TAB PO SCH (07:22)
[2016-09-06] MEDS ORDERED: SODIUM CHLORIDE 0.9% 1000ML 500 ML IV ONE (07:30)
[2016-09-06 07:54] LABS: BUN/CREATININE RATIO 36.5 (10-20); CALCIUM 8.1 mg/dl (8.5-10.1); CREATININE 0.71 mg/dl (0.60-1.40); POTASSIUM 4.4 mmol/L (3.5-5.1)
[2016-09-06] MEDS: INSULIN ASPART 100 UNITS/ML 3 ML PEN SC SCH ×4 (08:07→21:00)
[2016-09-06 08:52] LABS: INR 1.3 (0.9-1.1); PROTHROMBIN TIME (PATIENT) 13.5 SECONDS (9.0-12.0)
[2016-09-06] MEDS ORDERED: RXC5 PO (09:14)
--- NOTE | 2016-09-06 09:16 | Discharge Instructions ---
Discharge Instructions Date of Service September 06, 2016. Admission Reason for Admission: Atrial Flutter Discharge Discharge Diagnosis / Problem: Left Total Knee Discharge Goals Goal(s): Decrease discomfort, Improve function Activity Recommendations Activity Limitations: as noted below . Instructions / Follow-Up Instructions / Follow-Up Activity and Therapy Recommendations: * If you are using [facility] then Physical Therapy will be provided until they feel you are ready to start Outpatient Physical Therapy. If you are not using a Home Health agency then Outpatient Physical Therapy should start about 3-5 days from your day of surgery. Therapy will last about 6-10 weeks * It is important not to put a pillow under your knee when you are relaxing or sleeping. It is just as important to make sure you are getting your knee perfectly straight as it is to regain your knee bend. * You were shown a series of exercises in the hospital. Do these exercises three times each day including the exercises you were shown in physical therapy. * Get up and walk several times each day. For the first four weeks, try not to stand or walk for more than one hour at a time. If you do stand or walk for more than one hour, you will not hurt anything, but your leg will likely swell. * As you feel comfortable, you may change from the walker or crutches to a cane and then to independent walking. Medications: * Narcotic You will likely be sent home from the hospital with a prescription for the narcotic pain medication that worked best throughout your stay. * Resume your coumadin * Other medications may be prescribed for specific circumstances. If you have any questions, please call the office at . * Resume previous home medications unless otherwise instructed TEDs/Elastic Stockings: The white elastic stockings help limit swelling and prevent blood clots from forming in your legs.~ The more you wear them, the more they work. Wear them for six weeks. Showering: You may shower 5 days from the day of surgery. Let the soapy shower water run over the patrick. Do not scrub or soak the incision. Things To Watch For: * Drainage from the incision site that occurs more than one week after your surgery. * Increased redness at the incision site. * Fever above 102 degrees Fahrenheit. * Unusual chest pain or shortness of breath. * Call [facility] at with any of the above problems Follow-Up Visit: Follow-up with Dr. Sawant 2-3 weeks after your day of surgery. An appointment was probably scheduled when you signed-up for surgery in the office. If you have any questions call Office Instructions: More detailed instructions as well as Frequently Asked Questions were provided in a folder by our office when you signed-up for surgery. Please review these instructions when you get home. If you have any further questions or concerns, please feel free to call the office at [phone] Current Hospital Diet Patient's current hospital diet: Diabetes Type 2 Diet Discharge Diet Recommended Diet: Regular Diet Procedures Procedures Performed: Left Total Knee Arthroplasty Cemented Pending Studies Studies pending at discharge: no Laboratory Results Hemoglobin A1c Test 09/05/16 07:00 Range/Units Estimated Average Glucose 134 mg/dl Hemoglobin A1c 6.3 H 4.5-5.6 % Medical Emergencies . Who to Call and When: Medical Emergencies: If at any time you feel your situation is an emergency, please call 911 immediately. . Non-Emergent Contact Non-Emergency issues call your: Surgeon Call Non-Emergent contact if: wound has increased drainage, wound has increased redness . "Provider Documentation" section prepared by Abrahan Sawant. . VTE Core Measure Inpt VTE Proph given/why not?: Warfarin (Coumadin)
--- NOTE | 2016-09-06 10:48 | PROGRESS NOTE ---
DATE: 09/06/2016 CHIEF COMPLAINT: Status post left total knee arthroplasty postop day #2. PROGRESS: Laine was seen and examined at bedside today. He was sitting up in a chair with his knee flexed at 90 degrees. He said he really was not having any pain in his knee. He did not ambulate yesterday with physical therapy. It has been a while since he has really been up and walking on that leg. PHYSICAL EXAMINATION: LEFT LEG: The dressing has been changed. The drain has been pulled. He is sitting with the knee flexed at 90 degrees. He is neurovascularly intact. IMPRESSION: Status post left total knee arthroplasty postop day #2. PLAN: He is going to try to get up and ambulate more today with physical therapy. We will look to discharge him tomorrow. If he starts ambulating well with physical therapy and he wants to go home, we can discharge him home tomorrow, but if not, we will look to discharge him to a rehab facility. He is currently on Coumadin for DVT prophylaxis and bridged with Lovenox 40 mg daily. He will resume his Coumadin upon discharge.
--- NOTE | 2016-09-06 11:19 | Pharmacy Progress Note ---
Glycemic Control: Progress Nt Date of Service September 06, 2016. Scope Glycemic Pharmacist consulted by Dr Sawant on 09/04/16 for glycemic control and to write orders per [facility] inpatient glycemic control protocol. Objective Accuchecks BSG (last 24hrs): Test 09/05/16 11:44 09/05/16 16:30 09/05/16 20:21 09/06/16 07:01 Bedside Glucose 149 mg/dl (70-99) 176 mg/dl (70-99) 132 mg/dl (70-99) 119 mg/dl (70-99) Test 09/06/16 07:10 Random Glucose 116 mg/dl (70-99) Laboratory Data (last 24hrs) Test 09/06/16 07:10 Anion Gap 5.0 mmol/L BUN/Creatinine Ratio 36.5 Blood Urea Nitrogen 26 mg/dl Creatinine 0.71 mg/dl Potassium Level 4.4 mmol/L Sodium Level 143 mmol/L HbA1c: Test 09/05/16 07:00 Hemoglobin A1c 6.3 % (4.5-5.6) H Recent Pertinent Medications Outpatient Anti-diabetic Regimen: * Metformin 1 g po BID * Glipizide 15 mg po qAM * Actos 45 mg po qPM The patient is currently receiving: * Basal insulin: Lantus 18 units x 1 on 09/04 Lantus 15 units x 1 on 09/05 * Correctional Insulin: Novolog Correction per scale ACHS Goal Range: Low 110 mg/dL - High 140 mg/dL Correction Factor: 50 mg/dL/unit * Prandial insulin: Per carb ratio of 1 unit per 15 grams CHO consumed * Oral Agents: None at this time Risk Factors for Insulin Resistance: * Recent Surgery: POD 2 s/p TKA * Diet: type 2 diabetes - ave of 40 gm CHO w/ each meal Assessment & Plan ASSESSMENT: 09/04/16 * Pt is maintained on *three* oral antidiabetic agents as an outpatient with unknown degree of outpatient control * Oral agents are not recommended for inpatient use d/t drug interactions, changing PO intake, and difficulty titrating for acute hyper/hypoglycemia. ADA recommends re-initiating outpatient oral agents 1-2 days prior to discharge if/ when appropriate if they were held on admission. * Unknown HbA1c. Will order for tomorrow to assess degree of outpatient control * Will hold oral agents for admission and utilize SQ basal bolus insulin regimen which is the recommended regimen for inpatient glycemic control. * Will initiate weight based insulin dosing for insulin dora patient and titrate based on BSG trends. * Lantus 0.2 units/kg x1 now then weight-based w low stress additional this PM for hyperglycemia * Overnight check x1 * ADA & AACE recommend a goal blood sugar range 140-180 mg/dl for the majority of critically ill & non-critically ill patients. However, more stringent targets may be selected in individual cases. Will utilize more stringent goal of 110-140 mg/dl. Additionally, tighter glycemic control is warranted to facilitate wound/infection healing. 09/05/16 * Patient rec'd 24 units of insulin yesterday w/ BSGs ranging from 117-161 in the past 24 hours * BSG remains w/in range prior to lunch, indicating that TDD of ~30 units adequately controls the patient's blood sugars * Will plan to give an additional dose of Lantus today since the last dose was ~ 24 hours ago * Will also loosen both the CF and CR to be more consistent w/ a TDD of 30 units 09/06/16 * Mr. Luu rec'd 25 units of insulin yesterday with BSGs ranging from 116- 176 mg/dL in the past 24 hours * Plan is for potential d/c tomorrow so I would like to resume oral agents in preparation for discharge - no contraindications at this time, SCr stable and po intake adequate * Since oral agents will be resumed and no additional stressors are on board, he will not need further basal insulin and can d/c the carb ratio as well PLAN FOR INPATIENT GLYCEMIC CONTROL: * No further Lantus * Resume oral agents - glipizide + metformin + pioglitazone * Continue Novolog but remove carb ratio DISCHARGE RECOMMENDATIONS: * A1c indicates excellent control and would not even need to be this tight for patient's age - I did confirm w/ patient that he does NOT experience hypoglycemia * Continue outpatient regimen on discharge. Patient may want to f/u with PCP about getting rid of one or two agents since such strict control is not warranted with his age. Thank you.
[2016-09-06] MEDS ORDERED: WARFARIN SOD 5 MG TAB PO ONE (16:00)
[2016-09-06] MEDS: METFORMIN HCL 500 MG TAB PO SCH (16:50)
[2016-09-06] MEDS: SENNA 8.6 MG TAB PO SCH (19:53)
[2016-09-06] MEDS: BIMATOPROST 0.01% OP SOLN 2.5 ML BTL OPR SCH (19:53)
[2016-09-06] MEDS: ATORVASTATIN 40 MG TAB PO SCH (19:55)
[2016-09-06] MEDS: PIOGLITAZONE TAB 15 MG TAB PO SCH (21:04)
[2016-09-07] VITALS (9 sets, daily range): BP systolic 130–165; BP diastolic 64–72; PULSE 76–92; TEMP 37–37.3; O2SAT 92–100
[2016-09-07] MEDS: INSULIN ASPART 100 UNITS/ML 3 ML PEN SC SCH ×4 (07:00→21:12)
[2016-09-07] MEDS: METFORMIN HCL 500 MG TAB PO SCH ×2 (07:20→16:16)
[2016-09-07] MEDS: PANTOprazole SOD 40 MG TAB PO SCH (07:21)
[2016-09-07] MEDS: DORZOLAMIDE HCL 2% OPH SOLN 10 ML BTL OPR SCH (07:21)
[2016-09-07] MEDS: LISINOPRIL 40 MG TAB PO SCH (07:21)
[2016-09-07] MEDS: ENOXAPARIN 40 MG/0.4 ML SYR SQ SCH (07:21)
[2016-09-07] MEDS: DOCUSATE SODIUM 100 MG CAP PO SCH ×2 (07:21→21:09)
[2016-09-07] MEDS: DOXAZosin MESYLATE TAB 4 MG TAB PO SCH (07:21)
[2016-09-07] MEDS: MULTIVITAMIN TAB PO SCH (07:21)
[2016-09-07 08:27] LABS: BUN/CREATININE RATIO 36.4 (10-20); CREATININE 0.7 mg/dl (0.60-1.40); POTASSIUM 4.9 mmol/L (3.5-5.1)
[2016-09-07 08:52] LABS: INR 1.2 (0.9-1.1); PROTHROMBIN TIME (PATIENT) 13.3 SECONDS (9.0-12.0)
--- NOTE | 2016-09-07 14:34 | ORTHOPEDIC PROGRESS NOTE ---
DATE: 09/07/2016 SUBJECTIVE: Laine is sitting in bed comfortably. He is tolerating a normal diet. He is having difficulty voiding. He is voiding with a straight catheter. No significant complaints of any pain. He does have complaints of upper extremity weakness. Complaints of some edema in the upper extremities as well as lower extremities. OBJECTIVE: VITAL SIGNS: 37.3 degrees Celsius, pulse 78, respiratory rate 22, pulse ox is 92% on hi-flow oxygen at 15 liters a minute. EXTREMITIES: Examination of his left side. The dressing has been changed. It is clean and dry. The drain was pulled on postop day 2. He is sitting right now with his knee flexed at approximately 30 degrees. He is neurovascularly intact. IMPRESSION: Status post left total knee arthroplasty, postop day #3. PLAN: At this time, what are trying to get him into an inpatient rehabilitation center over in the [place] area. He has met with a nurse outsole caser. There are some concerns of some of his swelling in his upper and lower extremities as well as difficulty with voiding. We did put a consult in for the hospitalist to come take a look at him. Morning labs were done today. He has continued his Coumadin therapy for DVT prophylaxis which was bridged with Lovenox 40 mg daily. He is ambulating well with physical therapy. Will follow him back up in our office in approximately 10 days postop for suture removal and evaluation. NATHANAEL
--- NOTE | 2016-09-07 15:01 | Medical Consult ---
Consultation Date of Consultation: September 07, 2016 ~ 15:00 . Attending Physician: Abrahan Sawant DO Reason for Consultation: medical management . History of Present Illness 80 YO male from [place] followed by Cale Lee PA-C for medicine and Dr. Carlson for Cardiology. History of atrial flutter, hypertension, DM type 2, BPH, and other problems. Dobutamine stress echo performed on 09/02/16. Rest echo showed LVEF 50-54%, no segmental wall motion abnormalities. No evidence of stress-induced ischemia with dobutamine infusion. Left TKA performed by Dr. Sawant on 09/04/16. Postoperatively, patient has been having difficulties with fluid retention and voiding. He has required intermittent straight caths. Postvoid residual this morning by portable US was about 250 ml. Has chronic dependent / pedal edema, but now worse. Nursing also reports edema of penis. Otherwise, doing fairly well postoperatively. No chest pain. No cough or dyspnea. No nausea or vomiting. Has had bowel movement. Postop pain well-controlled. . Past Medical/Surgical History Chronic and Resolved Medical Problems: (1) Atrial flutter Status: Chronic (2) BPH (benign prostatic hypertrophy) Status: Chronic (3) Chronic kidney disease (CKD), stage III (moderate) Status: Chronic (4) Diabetes mellitus, type 2 Status: Chronic (5) Dyslipidemia Status: Chronic (6) Glaucoma Status: Chronic (7) Hypertension Status: Chronic (8) Osteoarthritis Status: Chronic Surgical Problems: (1) Status post left TKA Status: Chronic (2) Status post tonsillectomy Status: Chronic . Social History Smoking Status: Former Smoker Marital Status: Occupation Status: retired Allergies Coded Allergies: No Known Allergies (Unverified , 09/04/16) Home Medications Reported Home Medications Medications Dose Route/Sig Max Daily Dose Days Date Category Dose Instructions Oxycodone HCl 5 Mg Tab 5-10 Mg PO Q4H PRN 09/06/16 Rx [unknown"water pill"] 1 Tab PO QAM 09/04/16 Reported Coumadin (Warfarin Sodium) 6 Mg Tab 6 Mg PO 4XWK 08/03/16 Reported SUN, TUES, THUR AND SAT Coumadin (Warfarin Sodium) 4 Mg Tab 4 Mg PO 3XWK 08/03/16 Reported TAKES ON MON, WED AND WED Lumigan (Bimatoprost) Unknown Strength Magda 1 Drop OPR HS 08/03/16 Reported ONE DROP RIGHT EYE AT HS Trusopt Oph (Dorzolamide Hcl) 2 % Magda 1 Drop OPR QAM 08/03/16 Reported TAKES 1 DROP RIGHT EYE IN AM Garlic 1,000 Mg Cap 1,000 Mg PO QAM 08/03/16 Reported Aspirin Ec (Aspirin) 81 Mg Tab 81 Mg PO QAM 08/03/16 Reported Glucophage (Metformin Hcl) 500 Mg Tab 1,000 Mg PO BID 08/03/16 Reported Doxazosin Mesylate 4 Mg Tab 4 Mg PO QAM 08/03/16 Reported Actos (Pioglitazone) 30 Mg Tab 45 Mg PO QPM 08/03/16 Reported Glipizide 10 Mg Tab 10 Mg PO QDB 08/03/16 Reported Glipizide 5 Mg Tab 5 Mg PO QAM 08/03/16 Reported 30 MINS BEFORE MEAL Zestril (Lisinopril) 40 Mg Tab 40 Mg PO QAM 08/03/16 Reported Lipitor (Atorvastatin Calcium) 40 Mg Tab 40 Mg PO QPM 08/03/16 Reported Current Inpatient Medications Current Inpatient Medications Medications (Trade) Dose Ordered Sig/Iglesia Route Start Time Stop Time Status Last Admin Dose Admin Atorvastatin Calcium (Lipitor Tab) 40 mg QPM PO 09/04/16 21:00 10/04/16 20:59 09/06/16 19:55 40 MG Dorzolamide HCl (Trusopt 2% Oph Soln) 1 drops QAM OPR 09/04/16 09:00 10/04/16 08:59 09/07/16 07:21 1 DROPS Doxazosin Mesylate (Cardura Tab) 4 mg QAM PO 09/04/16 09:00 10/04/16 08:59 09/07/16 07:21 4 MG Lisinopril (Zestril Tab) 40 mg QAM PO 09/04/16 09:00 10/04/16 08:59 09/07/16 07:21 40 MG Bimatoprost (Lumigan 0.01%) 1 drops HS OPR 09/04/16 21:00 10/04/16 20:59 09/06/16 19:53 1 DROPS Insulin Aspart (novoLOG ASPART) SLIDING SCALE If C... ACHS SC 09/04/16 11:30 10/04/16 11:29 09/06/16 16:54 1 UNITS Glucose (Glucose 40% Gel) 15-30 GRAMS 15 GRAMS... UD PRN PO 09/04/16 09:00 10/04/16 08:59 Glucose (Glucose Chew Tab) 4-8 Tablets 4 Tabl... UD PRN PO 09/04/16 09:00 10/04/16 08:59 Dextrose (Dextrose 50% 50ML Syringe) 25-50ML OF 50% DW IV FOR... UD PRN IV 09/04/16 09:00 10/04/16 08:59 Glucagon (Glucagon Inj) 1 mg UD PRN SQ 09/04/16 09:00 10/04/16 08:59 Miscellaneous Information (Consult Glycemic Management Pharmacy) 1 ea UD PRN N/A 09/04/16 09:09 10/04/16 09:08 Oxycodone HCl (Roxicodone Immediate Rel Tab) 1 TABLET FOR PAIN RATING... Q4H PRN PO 09/04/16 09:00 09/18/16 08:59 Morphine Sulfate (MoRPHine SULFATE INJ) 2 mg Q2HWA PRN IV 09/04/16 09:00 09/18/16 08:59 09/04/16 21:13 2 MG Magnesium Hydroxide (Milk Of Magnesia Susp) 30 ml Q6H PRN PO 09/04/16 09:00 10/04/16 08:59 09/06/16 07:29 30 ML Bisacodyl (Dulcolax Supp) 10 mg DAILY PRN [place] 09/04/16 09:00 10/04/16 08:59 Sodium Biphosphate/ Sodium Phosphate (Fleet Enema) 132 ml DAILY PRN [place] 09/04/16 09:00 10/04/16 08:59 Senna (Senokot Tab) 17.2 mg HS PO 09/04/16 21:00 10/04/16 20:59 09/06/16 19:53 17.2 MG Docusate Sodium (coLACE CAP) 100 mg BID PO 09/04/16 09:00 10/04/16 08:59 09/07/16 07:21 100 MG Multivitamins (Multivitamin Tab) 1 tab QAM PO 09/04/16 09:00 10/04/16 08:59 09/07/16 07:21 1 TAB Ondansetron HCl (Zofran Inj) 4 mg Q6H PRN IV 09/04/16 09:00 10/04/16 08:59 Metoclopramide HCl (Reglan Inj) 10 mg Q6H PRN IV 09/04/16 09:00 10/04/16 08:59 Pantoprazole Sodium (Protonix Tab) 40 mg QAM PO 09/04/16 09:00 10/04/16 08:59 09/07/16 07:21 40 MG Silver Sulfadiazine (Silvadene 1% Crm 50GM Jar) 1 appln BID PRN EXT 09/04/16 09:00 10/04/16 08:59 Enoxaparin Sodium (Lovenox Inj) 40 mg Q24H SQ 09/05/16 07:00 10/05/16 06:59 09/07/16 07:21 40 MG Metformin HCl (Glucophage Tab) 1,000 mg BIDM PO 09/06/16 16:45 10/06/16 16:44 09/07/16 07:20 1,000 MG Glipizide (Glucotrol Tab) 15 mg DAILYBB PO 09/06/16 11:30 10/06/16 11:29 09/07/16 06:00 15 MG Pioglitazone HCl (ACTos TAB) 45 mg PM PO 09/06/16 21:00 10/06/16 20:59 09/06/16 21:04 45 MG Warfarin Sodium (Coumadin Tab) 6 mg TODAY@1600 ONCE PO 09/07/16 16:00 09/07/16 16:01 Review of Systems Constitutional: + weight loss, No fever Eyes: No diplopia, No worsening of vision ENT: + hearing loss, No sore throat Respiratory: No cough, No shortness of breath, No wheezing Cardiovascular: + edema, No chest pain Abdomen: No GI bleeding, No constipation, No diarrhea, No nausea, No pain, No vomiting Musculoskeletal: + joint pain (knee & back) Genitourinary - Male: + urinary hesitancy, No dysuria, No hematuria Endocrine: No excessive thirst, No excessive urination Hematologic / Lymphatic: + abnormal bleeding/bruising (bruises easily) Integumentary: No new/changing skin lesions, No rash Physical Exam Date Time Temp Pulse Resp B/P Pulse Ox O2 Delivery O2 Flow Rate FiO2 09/07/16 12:28 96 Room Air 09/07/16 11:48 37.3 78 22 92 High Flow Oxygen 15.0 Humidified Air Humidified Oxygen Mask Venturi Mask 09/07/16 08:11 96 Room Air 09/07/16 07:51 37.2 82 20 165/66 100 Room Air 09/07/16 04:15 Room Air 09/07/16 04:06 37.2 92 18 130/67 96 Room Air 09/07/16 00:00 Room Air 09/06/16 23:54 36.9 68 18 150/66 97 Room Air 09/06/16 20:00 Room Air 09/06/16 18:57 36.9 56 16 112/62 98 09/06/16 16:06 94 Room Air 09/06/16 15:41 36.8 77 18 134/67 99 General Appearance: WD/WN, no apparent distress Head: normocephalic, atraumatic Eyes: normal inspection, PERRL, EOMI, sclerae normal ENT: normal ENT inspection, hearing grossly normal, pharynx normal Neck: supple, no adenopathy, thyroid normal, trachea midline, + JVD Respiratory/Chest: lungs clear, no respiratory distress, no accessory muscle use Cardiovascular: + JVD, + systolic murmur (II/ LSB), + irregularly irregular, + pertinent finding (1+ pretibial edema, 2+ pedal edema) Genitourinary - Male: + penile abnormality (edema) Extremities/Musculoskelatal: + pertinent finding (L knee bandaged; SCD's applied) Neurologic/Psych: polls or surveys interviewer II-XII nml as tested (PERRL, EOMI, no facial palsy, no dyarthria), no motor/sensory deficits (strength extremities grossly intact), alert, normal mood/affect, oriented x 3 Skin: normal color, warm/dry, no rash Lymphatic: no adenopathy (cervical) Laboratory Results Last 24 Hours Test 09/06/16 16:40 09/06/16 21:04 09/07/16 06:58 09/07/16 07:33 Bedside Glucose 164 mg/dl 149 mg/dl 122 mg/dl Sodium Level 141 mmol/L Potassium Level 4.9 mmol/L Chloride Level 106 mmol/L Carbon Dioxide Level 28 mmol/L Anion Gap 7.0 mmol/L Blood Urea Nitrogen 26 mg/dl Creatinine 0.70 mg/dl Est Creatinine Clear Calc Drug Dose 97.5 ml/min Estimated GFR () 103.3 Estimated GFR (Non- 89.1 BUN/Creatinine Ratio 36.4 Random Glucose 123 mg/dl Calcium Level 8.0 mg/dl Test 09/07/16 08:27 09/07/16 11:05 Prothrombin Time 13.3 SECONDS Prothromb Time International Ratio 1.2 Bedside Glucose 130 mg/dl Assessment & Plan S/P LEFT TKA POD # 3. ATRIAL FLUTTER Ventricular rate controlled without rate-slowing meds. Warfarin held for TKA and resumed postoperatively. EDEMA Chronic dependent edema, now worse. Recent echo showed low-normal LVEF; TR, pulmonary hypertension, RV enlargement noted. May have underlying sleep apnea. Urinary retention may be contributing factor. Will try to diurese more aggressively as hemodynamics and renal function permit. IV furosemide 40 mg this afternoon, then BID. Check albumin, LFT's, TSH. Pioglitazone could be contributing factor. RIGHT-SIDED HEART FAILURE Recent echo showed tricuspid regurgitation, pulmonary hypertension, RV enlargement noted. May have underlying sleep apnea. Check nocturnal pulse oximetry. Suggest outpatient sleep study for more comprehensive evaluation. HYPERTENSION Continue furosemide, lisinopril, doxazosin. Follow and titrate Rx. DM TYPE II DM type 2 managed with oral agents as outpatient. Pt does not monitor blood sugars at home. Hgb A1C in clinic was 6.1 on 08/10/16. FBS this morning 122/ Pioglitazone could be contributing to edema;.discontinue. Continue metformin and glipizide. DYSLIPIDEMIA Continue atorvastatin. BPH Patient unaware of any history of urologic problems, but clinic records note history of BPH. Takes doxazosin. Having problems with urinary retention and worsening edema postoperatively. Continue doxazosin. Add finasteride. Artis cath for urinary retention; continue until edema improved, then try voiding trial. Should have follow-up with Urology if he continues to have difficulties. VTE PROPHYLAXIS SCD's, SQ enoxaparin, warfarin ordered postop. Thank you for this consultation. We will follow the patient with you during their hospital stay. Dr. Valera will be rounding starting on Friday 09/08. You can reach a member of the [facility] Hospitalist Team 09/11 via pager @ . You can reach me via cell @ [phone]. . Additional Copies To Shikhar. Carlson MD; Cale Lee PA-C
[2016-09-07] MEDS ORDERED: FUROSEMIDE INJ 40 MG in SYRINGE 0 ML IV ONE (16:00)
[2016-09-07] MEDS ORDERED: WARFARIN SOD 6 MG TAB PO ONE (16:00)
--- NOTE | 2016-09-07 17:40 | PROGRESS NOTE ---
DATE: 09/07/2016 CHIEF COMPLAINT: Status post left total knee arthroplasty, postop day #3. PROGRESS: Laine was seen and examined at bedside today. Overall, he is doing fairly well. He did get up with physical therapy, but he was unable to take any steps. His pain is pretty well controlled. He had no acute events today has no other complaints. PHYSICAL EXAMINATION: LEFT LEG: The dressing is clean and dry. The drains have been pulled. He is lying with his knee in extension. He has active dorsiflexion and plantarflexion of his left leg. IMPRESSION: Status post left total knee arthroplasty postop day #3. PLAN: At this point, we are still waiting for placement of rehabilitation. He has not been progressing with weightbearing as fast as I would like. We'll have therapy to see him tomorrow and likely discharge him to rehab. He is currently on Coumadin for DVT prophylaxis and bridged with Lovenox 40 mg daily. Will resume his Coumadin upon discharge. [facility]
[2016-09-07] MEDS: ATORVASTATIN 40 MG TAB PO SCH (21:09)
[2016-09-07] MEDS: SENNA 8.6 MG TAB PO SCH (21:10)
[2016-09-07] MEDS: PIOGLITAZONE TAB 15 MG TAB PO SCH (21:10)
[2016-09-07] MEDS: BIMATOPROST 0.01% OP SOLN 2.5 ML BTL OPR SCH (21:10)
[2016-09-08 03:00] VITALS: BP 144/64; PULSE 69; TEMP 37; O2SAT 98
[2016-09-08 07:33] LABS: INR 1.2 (0.9-1.1); PROTHROMBIN TIME (PATIENT) 13.2 SECONDS (9.0-12.0)
[2016-09-08 07:56] LABS: BUN/CREATININE RATIO 30.9 (10-20); CALCIUM 8.3 mg/dl (8.5-10.1); CREATININE 0.71 mg/dl (0.60-1.40); MAGNESIUM 1.8 mg/dl (1.8-2.4); POTASSIUM 4.8 mmol/L (3.5-5.1)
[2016-09-08 08:03] LABS: THYROID STIMULATING HORMONE 2.74 uIu/ml (0.300-4.500)
[2016-09-08] MEDS: PANTOprazole SOD 40 MG TAB PO SCH (08:08)
[2016-09-08] MEDS: MULTIVITAMIN TAB PO SCH (08:08)
[2016-09-08] MEDS: DOCUSATE SODIUM 100 MG CAP PO SCH (08:09)
[2016-09-08] MEDS: DOXAZosin MESYLATE TAB 4 MG TAB PO SCH (08:09)
[2016-09-08] MEDS: LISINOPRIL 40 MG TAB PO SCH (08:09)
[2016-09-08] MEDS: ENOXAPARIN 40 MG/0.4 ML SYR SQ SCH (08:10)
[2016-09-08] MEDS: METFORMIN HCL 500 MG TAB PO SCH (08:10)
[2016-09-08] MEDS: DORZOLAMIDE HCL 2% OPH SOLN 10 ML BTL OPR SCH (08:11)
[2016-09-08] MEDS: INSULIN ASPART 100 UNITS/ML 3 ML PEN SC SCH ×2 (08:11→11:00)
--- NOTE | 2016-09-08 08:36 | DIAGNOSTIC IMAGING REPORT ---
SINGLE VIEW CHEST CLINICAL HISTORY: Edema. FINDINGS: An AP, portable, upright chest radiograph is compared to study dated 08/03/2016. The examination is degraded by portable technique and patient rotation. The heart is enlarged and there is atherosclerotic calcification of the thoracic aorta. The pulmonary vasculature is noncongested very consolidative change is suggested at the left lung base in the retrocardiac region. Trace pleural effusions are suspected. No pneumothorax is seen. The skeletal structures are osteopenic. The bony thorax is grossly intact. IMPRESSION: 1. Cardiomegaly without radiographic evidence of congestive failure. 2. Trace pleural effusions are suspected. 3. Consolidative change is noted at the left lung base. This could represent atelectasis versus an infectious/inflammatory pneumonitis. Clinical correlation will be required. Radiographic follow-up to resolution is recommended. Electronically signed by: Cam Quinn M.D. 09/08/2016 8:35 AM Dictated Date/Time: 09/08/2016 8:34 AM
[2016-09-08] MEDS ORDERED: FUROSEMIDE INJ 40 MG in SYRINGE 0 ML IV SCH (09:00)
[2016-09-08] MEDS ORDERED: FINASTERIDE 5 MG TAB PO SCH (09:00)
[2016-09-08 09:06] VITALS: BP 131/64; PULSE 69; TEMP 36.9; O2SAT 96
--- NOTE | 2016-09-08 09:10 | Pharmacy Progress Note ---
Pharmacy Glycemic Sign Off Nt Date of Service September 08, 2016. Assessment & Plan ASSESSMENT: * Pharmacy was consulted by Dr Sawant on 09/04/2016 for glycemic control and to write orders per [facility] inpatient glycemic control protocol. * Major changes made by pharmacy to antidiabetic regimen include: * Patient was started on Lantus during his admission for the first two days after his surgery. He was placed on a Novolog scale which was adjusted for stress after the dexamethasone for surgery. * His home medications were restarted and he has been tolerating well. * Patient has been receiving/requiring <10 units of insulin per day for adequate glycemic control * BSGs ranging 120-160 [] mg/dl * Regimen has only required minor adjustments over the past 48hrs to achieve this level of control * Do not anticipate further changes in patient status that would quickly deteriorate glycemic control (i.e. patient to be NPO for upcoming procedure, steroids tapering, starting tube feedings, etc). * Please see recommendations for outpatient antidiabetic regimen below. PLAN FOR INPATIENT GLYCEMIC CONTROL: No changes needed to current regimen. * Continue metformin 1 gm PO BID and glipizide 15 mg po daily * Continue NovoLog per scale ACHS * Goal range = 110 - 150 mg/dl * CF = 50 mg/dl/unit * CR = 1 unit for ever 15 g CHO consumed * A1c added to discharge instructions to be communicated to PCP. * Pharmacy is signing off of glycemic consult and will no longer be making adjustments to inpatient regimen. Please feel free to re-consult if needed. Thank you. DISCHARGE RECOMMENDATIONS: * A1c [] % on [date]
[2016-09-08] MEDS ORDERED: FURO20TA PO (09:51)
--- NOTE | 2016-09-08 11:07 | PROGRESS NOTE ---
DATE: 09/08/2016 DATE: 09/08/2016. SUBJECTIVE: Laine is an 80-year-old male who is postop day 3 from total knee replacement, really is not having pain with his knee today. He had some physical therapy, but did not do any walking. He was doing some range of motion exercises he said. No other complaints at this time. OBJECTIVE: GENERAL: He is alert, oriented in no distress. Dressing on the left lower extremity is clean, dry and intact. The patrick are intact. He is able to plantarflex and dorsiflex his ankle appropriately. Calf is soft and nontender. ASSESSMENT: Postop day 4 from left total knee arthroplasty. PLAN: We are planning for discharge to rehab facility when okay with the medicine service. We will have him continue physical therapy. Total knee protocol. Continue Coumadin and is being bridged with Lovenox for DVT prophylaxis.
[2016-09-08 11:11] VITALS: BP 131/64; PULSE 69; TEMP 36.9; O2SAT 96
[2016-09-08] MEDS ORDERED: PRS5 PO (13:25)
--- NOTE | 2016-09-08 14:19 | Progress Note ---
Medicine Progress Note Date & Time of Visit: September 08, 2016 at 14:08. Subjective 80 yo m s/p L TKA 3 days ago with post-op edema. He is not SOB today and denies chest pain or other symptoms. Pain is well-controlled. Tolerating PO. Noted improvement in swelling. Objective Last 8 Hrs Date Time Temp Pulse Resp B/P Pulse Ox O2 Delivery O2 Flow Rate FiO2 09/08/16 12:00 Room Air 09/08/16 11:11 36.9 69 18 96 Room Air 09/08/16 09:06 36.9 69 18 131/64 96 Room Air 09/08/16 08:00 Room Air Physical Exam: GEN: obese, in no acute distress, alert and appropriate HEENT: NC/AT, PERRL, normal sclerae, MMM CARDIO: reg rate, S1/2 heard without m/g/r LUNGS: CTA bilaterally, no crackles, rales or wheezes, good diaphragmatic excursion ABD: soft, non-tender, non-distended, no rebound or guarding EXTREMITY: RP and DP palpable 2+ bilat, trace edema noted in arms and legs and on penis, TEDs in place on lower extremities to thighs, extremities are warm and well-perfused. Some ecchymosis on RUE NEURO: CN 2-12 grossly intact, no gross focal deficits. MUSC: moves all extremities equally, generalized weakness noted. SKIN: warm and dry and as above. Laboratory Results: 09/05/16 07:00 09/08/16 07:00 Test 09/04/16 05:46 09/05/16 07:00 09/08/16 07:00 09/08/16 11:08 Activated Partial Thromboplast Time 27.6 SECONDS (21.0-31.0) Partial Thromboplastin Ratio 1.1 Red Blood Count 3.27 M/uL (4.7-6.1) Mean Corpuscular Volume 93.9 fL (80-100) Mean Corpuscular Hemoglobin 28.7 pg (25-34) Mean Corpuscular Hemoglobin Concent 30.6 g/dl (32-36) RDW Standard Deviation 55.8 fL (36.4-46.3) RDW Coefficient of Variation 16.2 % (11.5-14.5) Mean Platelet Volume 10.6 fL (7.4-10.4) Estimated Average Glucose 134 mg/dl Hemoglobin A1c 6.3 % (4.5-5.6) Prothrombin Time 13.2 SECONDS (9.0-12.0) Prothromb Time International Ratio 1.2 (0.9-1.1) Anion Gap 4.0 mmol/L (3-11) Est Creatinine Clear Calc Drug Dose 96.9 ml/min Estimated GFR () 102.7 Estimated GFR (Non- 88.6 BUN/Creatinine Ratio 30.9 (10-20) Calcium Level 8.3 mg/dl (8.5-10.1) Magnesium Level 1.8 mg/dl (1.8-2.4) Total Bilirubin 1.2 mg/dl (0.2-1) Direct Bilirubin 0.3 mg/dl (0-0.2) Aspartate Amino Transf (AST/SGOT) 74 U/L (15-37) Alanine Aminotransferase (ALT/SGPT) 58 U/L (12-78) Alkaline Phosphatase 101 U/L (45-117) Total Protein 4.7 gm/dl (6.4-8.2) Albumin 2.1 gm/dl (3.4-5.0) Thyroid Stimulating Hormone (TSH) 2.740 uIu/ml (0.300-4.500) Bedside Glucose 150 mg/dl (70-99) Last 24 Hours Test 09/07/16 16:11 09/07/16 20:22 09/08/16 07:00 09/08/16 07:11 Bedside Glucose 140 mg/dl 158 mg/dl 115 mg/dl Prothrombin Time 13.2 SECONDS Prothromb Time International Ratio 1.2 Sodium Level 141 mmol/L Potassium Level 4.8 mmol/L Chloride Level 105 mmol/L Carbon Dioxide Level 32 mmol/L Anion Gap 4.0 mmol/L Blood Urea Nitrogen 22 mg/dl Creatinine 0.71 mg/dl Est Creatinine Clear Calc Drug Dose 96.9 ml/min Estimated GFR () 102.7 Estimated GFR (Non- 88.6 BUN/Creatinine Ratio 30.9 Random Glucose 114 mg/dl Calcium Level 8.3 mg/dl Magnesium Level 1.8 mg/dl Total Bilirubin 1.2 mg/dl Direct Bilirubin 0.3 mg/dl Aspartate Amino Transf (AST/SGOT) 74 U/L Alanine Aminotransferase (ALT/SGPT) 58 U/L Alkaline Phosphatase 101 U/L Total Protein 4.7 gm/dl Albumin 2.1 gm/dl Thyroid Stimulating Hormone (TSH) 2.740 uIu/ml Test 09/08/16 11:08 Bedside Glucose 150 mg/dl Assessment & Plan 80 yo M who is s/p L TKA 4 days ago, medical consultation for swelling. S/P LEFT TKA POD # 4-discharge instructions per Ortho EDEMA Chronic dependent edema, now worse. Recent echo showed low-normal LVEF; TR, pulmonary hypertension, RV enlargement noted. May have underlying sleep apnea. Urinary retention may be contributing factor. On Lasix 20mg PO daily as an outpatient--Lasix 40 IV was given yesterday with 4L output overnight and improvement per patient who appears euvolemic. Pioglitazone could be contributing factor, and this was stopped. Penile edema was seen which may be residual from overall fluid retention but will need to be followed closely as an outpatient. RIGHT-SIDED HEART FAILURE-chronic Recent echo showed tricuspid regurgitation, pulmonary hypertension, RV enlargement noted. May have underlying sleep apnea. Suggest outpatient sleep study for more comprehensive evaluation. This was mentioned to the patient on discharge. ATRIAL FLUTTER Ventricular rate controlled without rate-slowing meds. Warfarin held for TKA and resumed postoperatively. INR subtherapeutic and will need to be monitored as outpatient. Goal 2-3. HYPERTENSION-at goal Continue furosemide, lisinopril, doxazosin. DM TYPE II DM type 2 managed with oral agents as outpatient. Pt does not monitor blood sugars at home. Hgb A1C in clinic was 6.1 on 08/10/16. Pioglitazone could be contributing to edema;.discontinue. Continue metformin and glipizide. DYSLIPIDEMIA Continue atorvastatin. BPH Patient unaware of any history of urologic problems, but clinic records note history of BPH. Takes doxazosin. Having problems with urinary retention and worsening edema postoperatively. Continue doxazosin. Add finasteride. Passed Artis trial so with dc with PCP follow-up on new med, finasteride. MORBID [employer]ES[employer] Arina Copeland DO [facility] Hospitalist Current Inpatient Medications: Current Inpatient Medications Medications (Trade) Dose Ordered Sig/Iglesia Route Start Time Stop Time Status Last Admin Dose Admin Atorvastatin Calcium (Lipitor Tab) 40 mg QPM PO 09/04/16 21:00 10/04/16 20:59 09/07/16 21:09 40 MG Dorzolamide HCl (Trusopt 2% Oph Soln) 1 drops QAM OPR 09/04/16 09:00 10/04/16 08:59 09/08/16 08:11 1 DROPS Doxazosin Mesylate (Cardura Tab) 4 mg QAM PO 09/04/16 09:00 10/04/16 08:59 09/08/16 08:09 4 MG Lisinopril (Zestril Tab) 40 mg QAM PO 09/04/16 09:00 10/04/16 08:59 09/08/16 08:09 40 MG Bimatoprost (Lumigan 0.01%) 1 drops HS OPR 09/04/16 21:00 10/04/16 20:59 09/07/16 21:10 1 DROPS Insulin Aspart (novoLOG ASPART) SLIDING SCALE If C... ACHS SC 09/04/16 11:30 10/04/16 11:29 09/07/16 21:12 1 UNITS Glucose (Glucose 40% Gel) 15-30 GRAMS 15 GRAMS... UD PRN PO 09/04/16 09:00 10/04/16 08:59 Glucose (Glucose Chew Tab) 4-8 Tablets 4 Tabl... UD PRN PO 09/04/16 09:00 10/04/16 08:59 Dextrose (Dextrose 50% 50ML Syringe) 25-50ML OF 50% DW IV FOR... UD PRN IV 09/04/16 09:00 10/04/16 08:59 Glucagon (Glucagon Inj) 1 mg UD PRN SQ 09/04/16 09:00 10/04/16 08:59 Oxycodone HCl (Roxicodone Immediate Rel Tab) 1 TABLET FOR PAIN RATING... Q4H PRN PO 09/04/16 09:00 09/18/16 08:59 Morphine Sulfate (MoRPHine SULFATE INJ) 2 mg Q2HWA PRN IV 09/04/16 09:00 09/18/16 08:59 09/04/16 21:13 2 MG Magnesium Hydroxide (Milk Of Magnesia Susp) 30 ml Q6H PRN PO 09/04/16 09:00 10/04/16 08:59 09/06/16 07:29 30 ML Bisacodyl (Dulcolax Supp) 10 mg DAILY PRN [place] 09/04/16 09:00 10/04/16 08:59 Sodium Biphosphate/ Sodium Phosphate (Fleet Enema) 132 ml DAILY PRN ND 09/04/16 09:00 10/04/16 08:59 Senna (Senokot Tab) 17.2 mg HS PO 09/04/16 21:00 10/04/16 20:59 09/07/16 21:10 17.2 MG Docusate Sodium (coLACE CAP) 100 mg BID PO 09/04/16 09:00 10/04/16 08:59 09/08/16 08:09 100 MG Multivitamins (Multivitamin Tab) 1 tab QAM PO 09/04/16 09:00 10/04/16 08:59 09/08/16 08:08 1 TAB Ondansetron HCl (Zofran Inj) 4 mg Q6H PRN IV 09/04/16 09:00 10/04/16 08:59 Metoclopramide HCl (Reglan Inj) 10 mg Q6H PRN IV 09/04/16 09:00 10/04/16 08:59 Pantoprazole Sodium (Protonix Tab) 40 mg QAM PO 09/04/16 09:00 10/04/16 08:59 09/08/16 08:08 40 MG Silver Sulfadiazine (Silvadene 1% Crm 50GM Jar) 1 appln BID PRN EXT 09/04/16 09:00 10/04/16 08:59 Enoxaparin Sodium (Lovenox Inj) 40 mg Q24H SQ 09/05/16 07:00 10/05/16 06:59 09/08/16 08:10 40 MG Metformin HCl (Glucophage Tab) 1,000 mg BIDM PO 09/06/16 16:45 10/06/16 16:44 09/08/16 08:10 1,000 MG Glipizide (Glucotrol Tab) 15 mg DAILYBB PO 09/06/16 11:30 10/06/16 11:29 09/08/16 08:09 15 MG Finasteride (Proscar Tab) 5 mg QAM PO 09/08/16 09:00 10/08/16 08:59 09/08/16 08:11 5 MG Warfarin Sodium (Coumadin Tab) 4 mg MoWeFr@1600 PO 09/09/16 16:00 10/09/16 15:59 Warfarin Sodium (Coumadin Tab) 6 mg SuTuThSa@1600 PO 09/08/16 16:00 10/08/16 15:59
[2016-09-08] MEDS ORDERED: WARFARIN SOD 6 MG TAB PO SCH (16:00)
--- NOTE | 2016-09-08 17:21 | DISCHARGE SUMMARY ---
DISCHARGE DIAGNOSIS: Primary osteoarthritis of the left knee. POSTOPERATIVE DIAGNOSIS: Same. PROCEDURE: Left total knee arthroplasty on 09/04/[address] Abrahan Sawant. DISCHARGE INSTRUCTIONS: 1. Flomax 5 mg daily. 2. Oxycodone 5-10 mg every 4 hours as needed for pain. 3. Aspirin 81 mg daily. 4. Lipitor 40 mg daily. 5. Lumigan 1 drop at night. 6. Dorzolamide 1 drop daily. 7. Doxazosin 4 mg daily. 8. Lasix 20 mg daily. 9. Garlic 1000 mg daily. 10. Glipizide 5 mg daily. 11. Glipizide 10 mg daily. 12. Lisinopril 40 mg daily. 13. Glucophage 1000 mg twice a day. 14. Coumadin 4 mg 3 times a week. 15. Coumadin 6 mg 4 times a week. 16. Stop Actos. HOSPITAL COURSE: Laine is a pleasant 80-year-old male who presented to my office with complaints of chronic left knee pain. It was to the point where he was unable to ambulate. X-rays and clinical examination were diagnostic for primary osteoarthritis of the left knee. After failing conservative treatment, he elected to undergo a left total knee arthroplasty. On 09/04/2016, he arrived at [facility] and underwent a left knee replacement without complications. He had a spinal anesthetic and a left adductor nerve block. Postoperatively, he was discharged to general orthopedic floor. He was put on Lovenox 40 mg subQ daily to bridge while he was started on Coumadin. On postop day #1, his H\T\H was stable at 9.4 and 30.7. He was able to get up with physical therapy, but he was unable to ambulate. His pain was well controlled. On postop day #2, the dressing was changed, the drain was pulled. He had good motion of his knee, but he was still having trouble with ambulation. At that point, he decided not to go home and he elected for referral to rehabilitation. That process was started. On postop day 3, he was doing fairly well. His pain was well controlled, but he was still ambulating very minimal with physical therapy. He was also having trouble with urinary retention as well as lower extremity edema and internal medicine service was consulted. They started him on some Flomax. His symptoms were improving. His knee continued to do fairly well. On postop day #4, he had placement at a rehabilitation facility and was subsequently discharged with the above instructions.
[2016-09-09] MEDS ORDERED: WARFARIN SOD 4 MG TAB PO SCH (16:00)
== END 2016-09-08 14:56 | DRG 470 ==
LOC: ENRESERVTM → ENRESERVDT → CANRESERV → C.ACU 04:51 → C.2T 06:20 → UNDOADMIN 10:00 → C.2T 10:00 → EDBEDREQSVC 10:02
PROVIDERS: ADMIT Orthopaedic Surgery; ATTEND Orthopaedic Surgery
PROC: 0SRD0J9 Replacement of Left Knee Joint with Synthetic Substitute, Cemented, Open Approach (ICD-10-PCS; principal; 2016-09-04 07:00)
DX: M17.12 Unilateral primary osteoarthritis, left knee (principal); I48.92 Unspecified atrial flutter; I13.0 Hypertensive heart and chronic kidney disease with heart failure and stage 1 through stage 4 chronic kidney disease, or unspecified chronic kidney disease; I48.91 Unspecified atrial fibrillation; E11.22 Type 2 diabetes mellitus with diabetic chronic kidney disease; E78.5 Hyperlipidemia, unspecified; N18.3 Chronic kidney disease, stage 3 (moderate); I50.9 Heart failure, unspecified; H40.9 Unspecified glaucoma; N40.1 Benign prostatic hyperplasia with lower urinary tract symptoms; R33.8 Other retention of urine; I27.2 Other secondary pulmonary hypertension; F17.220 Nicotine dependence, chewing tobacco, uncomplicated; I07.1 Rheumatic tricuspid insufficiency; G47.30 Sleep apnea, unspecified; R20.0 Anesthesia of skin; D64.9 Anemia, unspecified; E66.01 Morbid (severe) obesity due to excess calories; R60.0 Localized edema; Z68.30 Body mass index [BMI] 30.0-30.9, adult; Z79.82 Long term (current) use of aspirin; Z79.84 Long term (current) use of oral hypoglycemic drugs; Z79.01 Long term (current) use of anticoagulants; Z79.899 Other long term (current) drug therapy